=== PATIENT | female | born 1995 | race Caucasian/White ===

== ENCOUNTER 2022-06-21 19:06 | Emergency (ER) | payer OTHER ==
[2022-06-21 19:36] VITALS: TEMP 98
[2022-06-21] MEDS ORDERED: SODIUM CHLORIDE 0.9% 1,000 ML IV STA ×2 (21:38)
--- NOTE | 2022-06-21 21:42 | ED ---
General Adult HPI - General Source: patient Mode of arrival: ambulatory Limitations: no limitations <James Chin - Last Filed: 06/21/22 23:20> - History of Present Illness -: month(s) Location: head Radiation: non-radiation Severity scale (1-10): 3 Consistency: intermittent (Dizziness) Improves with: none Worsens with: none Associated Symptoms: diaphoresis (Night sweats), loss of appetite, malaise, weakness Treatments Prior to Arrival: none <Heriberto Hoskins - Last Filed: 06/22/22 01:43> - General Chief complaint: Headache Stated complaint: head pain Time Seen by Provider: 06/21/22 21:26 - History of Present Illness Initial comments: Dictation was produced using [employer] dictation software. please excuse any grammatical, word or spelling errors. Chief Complaint: 27-year-old female withpast medical history presents to the ER for headache History of Present Illness: She is 27-year-old female she presents to emergency Department with headache. Patient states that it's frontal and at the vertex. It's worse when she leans forward. Denies any fever or rhinorrhea. Patient was at her wedding makeup artist today and he told her that there is concern that she may have something intracranial. She is diagnosed with vertigo recently. She denies any vertigo complaints today. No numbness and paresthesias to the arms or legs. She does complain of bilateral calf pain. History of DVT. Denies any vision changes. She has been having this ongoing pain for about 7 days. The ROS documented in this emergency department record has been reviewed and confirmed by me. Those systems with pertinent positive or negative responses have been documented in the HPI. All other systems are other negative and/or noncontributory. PHYSICAL EXAM: General Impression: Alert and oriented x3, not in acute distress HEENT: Normocephalic atraumatic, extra-ocular movements intact, pupils equal and reactive to light bilaterally, mucous membranes moist. Cardiovascular: Heart regular rate and rhythm Chest: Able to complete full sentences, no retractions, no tachypnea Abdomen: abdomen soft, non-tender, non-distended, no organomegaly Musculoskeletal: Pulses present and equal in all extremities, no peripheral edema Motor: no focal deficits noted Neurological: CN II-XII grossly intact, no focal motor or sensory deficits noted Skin: Intact with no visualized rashes Psych: Normal affect and mood ED course: 27-year-old female with no significant comorbid is presents emergency Department were 7 days of headache. Patient states that it's worse when leaning forward. Vital Signs upon arrival shows heart rate of 111, worse vital signs within acceptable limits. Patient care sign out to Dr. Hoskins (James Chin) - Related Data Home Medications Medication Instructions Recorded Confirmed Ibuprofen 600 mg PO Q6H PRN 06/21/22 06/21/22 Meclizine [Antivert] 12.5 mg PO TID PRN 06/21/22 06/21/22 Norelgestromin/Ethin.estradiol 1 patch TRANSDERM Q7D 06/21/22 06/21/22 [Xulane 150-35 Mcg/Day Patch] hydrOXYzine pamoate 50 mg PO TID PRN 06/21/22 06/21/22 Allergies Allergy/AdvReac Type Severity Reaction Status Date / Time No Known Allergies Allergy Verified 06/21/22 22:57 Review of Systems ROS Other: All systems not noted in ROS Statement are negative. <James Chin - Last Filed: 06/21/22 23:20> ROS Other: All systems not noted in ROS Statement are negative. <Heriberto Hoskins - Last Filed: 06/22/22 01:43> ROS Statement: Those systems with pertinent positive or pertinent negative responses have been documented in the HPI. Past Medical History Past Medical History: No Reported History History of Any Multi-Drug Resistant Organisms: None Reported Past Surgical History: Section, Hernia Repair Additional Past Surgical History / Comment(s): LEEP procedure Past Psychological History: No Psychological Hx Reported Smoking Status: Never smoker Past Alcohol Use History: None Reported Past Drug Use History: None Reported <James Chin - Last Filed: 06/21/22 23:20> General Exam Limitations: no limitations <James Chin - Last Filed: 06/21/22 23:20> General appearance: alert, in no apparent distress, anxious Head exam: Present: atraumatic, normocephalic, normal inspection Eye exam: Present: normal appearance, PERRL, EOMI. Absent: scleral icterus, conjunctival injection, periorbital swelling ENT exam: Present: normal exam, mucous membranes moist Neck exam: Present: normal inspection. Absent: tenderness, meningismus, lymphadenopathy Respiratory exam: Present: normal lung sounds bilaterally. Absent: respiratory distress, wheezes, rales, rhonchi, stridor Cardiovascular Exam: Present: regular rate, normal rhythm, normal heart sounds. Absent: systolic murmur, diastolic murmur, rubs, gallop, clicks GI/Abdominal exam: Present: soft, normal bowel sounds. Absent: distended, tenderness, guarding, rebound, rigid Extremities exam: Present: normal inspection, full ROM, normal capillary refill. Absent: tenderness, pedal edema, joint swelling, calf tenderness Back exam: Present: normal inspection Neurological exam: Present: alert, oriented X3, CN II-XII intact Psychiatric exam: Present: normal affect, normal mood Skin exam: Present: warm, dry, intact, normal color. Absent: rash <Heriberto Hoskins - Last Filed: 06/22/22 01:43> Course <Heriberto Hoskins - Last Filed: 06/22/22 01:43> Vital Signs 06/21/22 19:32 Temperature 98 F Pulse Rate 111 H Respiratory 16 Rate Blood Pressure 159/100 O2 Sat by Pulse 98 Oximetry - Reevaluation(s) Reevaluation #1: 06/22/22 01:40 Medical record is reviewed (Heriberto Hoskins) Reevaluation #2: 06/22/22 01:40 Patient's headache is improved here in the emergency department (Heriberto Hoskins) Reevaluation #3: 06/22/22 01:40 Patient informed of results and questions are answered (Heriberto Hoskins) Reevaluation #4: 06/22/22 01:41 Patient is encouraged to continue follow-up on outpatient basis for cause of current symptoms (Heriberto Hoskins) Medical Decision Making - Radiology Data Radiology results: report reviewed (CT brain is negative for acute disease.), image reviewed <Heriberto Hoskins - Last Filed: 06/22/22 01:43> - Medical Decision Making 27 female [place] with multiple nonspecific symptoms. No acute cause found here in the ER headache pain main current symptomatic dizziness computed tomography scan is negative for brain. Patient's headache is improved here in the ER she will be discharged home (Heriberto Hoskins) Disposition <James Chin - Last Filed: 06/21/22 23:20> Is patient prescribed a controlled substance at d/c from ED?: No Time of Disposition: 01:45 <Heriberto Hoskins - Last Filed: 06/22/22 01:43> Clinical Impression: Dizziness, Headache, Weakness, Fatigue Disposition: HOME SELF-CARE Condition: Good Instructions (If sedation given, give patient instructions): Acute Headache (ED), Dizziness (ED), Fatigue (ED) Referrals: Gonzales Alves MD [Primary Care Provider] - 1-2 days Blessing Orozco MD [STAFF PHYSICIAN] - 1-2 days
--- NOTE | 2022-06-22 00:14 | CT ---
EXAMINATION TYPE: CT brain wo con DATE OF EXAM: 06/21/2022 COMPARISON: None HISTORY: FORD CT DLP: 1099.8 mGycm Automated exposure control for dose reduction was used. Images of the brain obtained with no contrast. Ventricles and sulci appear normal. There is no mass effect or midline shift. No sign of intracranial hemorrhage. Calvarium is intact. There is normal aeration of the mastoid sinuses. IMPRESSION: Negative unenhanced head CT scan.
[2022-06-22] MEDS ORDERED: KETOROLAC 15 MG/ML 1 ML VIAL IVP STA (01:34)
[2022-06-22] MEDS ORDERED: PROCHLORPERAZINE INJ 10 MG/2 ML VIAL IVP STA (01:34)
[2022-06-22 01:48] VITALS: BP 132/78; PULSE 91; RESP 15
== END 2022-06-22 02:26 | disposition home or self-care (01) ==
LOC: EC 19:06
DX: R42 Dizziness and giddiness (principal); R51.9 Headache, unspecified; R53.1 Weakness
CPT/HCPCS: 70450; 99284; 96374; 96375; 96361; J0780; J1885